=== PATIENT | male | born 1960 | race Caucasian/White ===

== ENCOUNTER 2022-08-18 21:39 | Emergency (ER) | payer BC ==
[~2022-08-18] VITALS: Ht 172.7 cm; Wt 86.2 kg
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
[2022-08-18 22:04] LABS: HEMATOCRIT 41.8 % (36.7-47.1); MEAN CORPUSCULAR HEMOGLOBIN 28.9 uug (23.8-33.4); MEAN CORPUSCULAR VOLUME 85.5 fL (73.0-96.2); PLATELET COUNT (AUTO) 340 K/uL (152-348)
[2022-08-18 22:39] LABS: ALANINE AMINOTRANSFERASE 29 U/L (16-63); ALKALINE PHOSPHATASE 92 U/L (50-136); ASPARTATE AMINOTRANSFERASE 12 U/L (15-37); BILIRUBIN,DIRECT 0.1 mg/dL (0.0-0.2); BILIRUBIN,TOTAL 0.4 mg/dL (0.2-1.0); CARBON DIOXIDE 25 mmol/L (21-32); CHLORIDE 103 mmol/L (98-107); CREATININE 1.8 mg/dL (0.6-1.3); GLUCOSE 132 mg/dL (74-106); POTASSIUM 3.4 mmol/L (3.5-5.1); TOTAL PROTEIN, SERUM 7.3 g/dL (6.4-8.2); UREA NITROGEN, BLOOD 21 mg/dL (7-18)
[2022-08-18] MEDS ORDERED: diphenhydrAMINE 50 MG/1 ML VIAL ONE (22:43)
[2022-08-18] MEDS ORDERED: HALOPERIDOL LACTATE 5 MG/1 ML VIAL ONE (22:43)
[2022-08-18 22:44] LABS: ACETAMINOPHEN < 2.0 ug/mL (10-30); ETHANOL < 3 MG/DL (0-0)
[2022-08-18] MEDS ORDERED: LORAZEPAM 2 MG/1 ML VIAL ONE (22:44)
[2022-08-18] MEDS ORDERED: LORAZEPAM 2 MG/1 ML VIAL IM ONE (22:45)
[2022-08-18] MEDS ORDERED: diphenhydrAMINE 50 MG/1 ML VIAL IM ONE (22:45)
[2022-08-18] MEDS ORDERED: HALOPERIDOL LACTATE 5 MG/1 ML VIAL IM ONE (22:45)
[2022-08-18] MEDS ORDERED: IV NS 1000 ML 1,000 ML IV ONE ×2 (23:30)
[2022-08-19] LABS: MAGNESIUM 2.4 mg/dL (1.8-2.4)
[2022-08-19] MEDS ORDERED: POTASSIUM CHLORIDE 200 ML ONE (00:28)
[2022-08-19] MEDS: POTASSIUM CHLORIDE 50 ML IV SCH ×4 (00:35→03:33)
--- NOTE | 2022-08-19 01:52 | NUR ---
Patient medically cleared. Called intake department and informed that patient is medically cleared, informed of patient insurance ([employer]), per intake, no beds available at [facility] at this time. No male bed available here at [facility]. Called PET team/Art and informed regarding patient and that patient is already on a 5150 hold. Stated to notify funeral workers in AM to look for placement and for this nurse to try to call [facility] intake as well as [facility] for bed availability.
--- NOTE | 2022-08-19 01:57 | NUR ---
Telephone call to [facility] intake, spoke to Paige, stated that they do not have any male bed at this time and to check again in AM.
--- NOTE | 2022-08-19 01:59 | NUR ---
Telephone call to [facility] intake, spoke to Amaya, stated that they do not have any male bed at this time and to check again after 8AM.
--- NOTE | 2022-08-19 02:01 | NUR ---
Telephone call to [facility], stated that they do not take patient on a 5150 hold.
[2022-08-19 02:19] LABS: *BILIRUBIN,URIN NEGATIVE (NEGATIVE); *BLOOD, URINE 1+ (NEGATIVE); *COLOR,URINE YELLOW (YELLOW); *KETONES,URINE NEGATIVE (NEGATIVE); *UROBILINOGEN,URINE 0.2 E.U./dl (NORMAL); LEUKOCYTE ESTERASE ,URINE 1+ (NEGATIVE); NITRITE, URINE NEGATIVE (NEGATIVE); PH,URINE 5.5 (5.0-8.0); UGLUCOSE NEGATIVE (NEGATIVE)
[2022-08-19 02:20] LABS: *CLARITY,URINE HAZY (CLEAR)
[2022-08-19 02:24] LABS: BACTERIA,URINE FEW /HPF (NONE SEEN); SQUAMOUS EPITHELIAL CELL,UR NONE SEEN /HPF (NONE SEEN)
[2022-08-19 02:36] LABS: *AMPHETAMINE, URINE NEGATIVE (NEGATIVE); *CANNABINOID, URINE NEGATIVE (NEGATIVE); *COCCAINE, URINE NEGATIVE (NEGATIVE); *PHENCYCLIDINE SCREEN,URINE NEGATIVE (NEGATIVE)
[2022-08-19] MEDS ORDERED: CEFTRIAXONE /D5W 50ML IVPB **ER PYXIS IV ONE (03:45)
[2022-08-19] MEDS ORDERED: CEFTRIAXONE 1 G in IV DEXTROSE 5% 50 ML IV ONE (03:45)
--- NOTE | 2022-08-19 03:50 | NUR ---
Noted patient IV pulled out. Placed new IV on left hand #20G.
[2022-08-19] MEDS ORDERED: QUET50TA PO (04:40)
[2022-08-19] MEDS ORDERED: MIRT-121 PO (04:40)
[2022-08-19] MEDS ORDERED: ATOR10TA PO (04:40)
--- NOTE | 2022-08-19 06:52 | NUR ---
SBAR report given to day shift KARO Baumann.
--- NOTE | 2022-08-19 07:14 | NUR ---
PT IS IN ROOM #2A. RESTING IN BED COMFORTABLY. NO S/S OF ACUTE DISTRESS. SITTER AT THE BEDSIDE. CONTINUE TO MONITOR THE PT.
--- NOTE | 2022-08-19 08:28 | NUR ---
SOPHIE contacted [facility] and faxed the patient's clinical information (fax: [phone]). SOPHIE also faxed the patient's clinical information to Aj Conde, [facility], [facility]. SOPHIE will continue to follow up.
[2022-08-19] MEDS ORDERED: LORAZEPAM 2 MG/1 ML VIAL ONE (09:37)
[2022-08-19] MEDS ORDERED: LORAZEPAM 2 MG/1 ML VIAL IM ONE (09:45)
--- NOTE | 2022-08-19 10:26 | NUR ---
PT IS RESTING IN BED COMFORTABLY. NO S/S OF ACUTE DISTRESS. SITTER AT THE BEDSIDE.
--- NOTE | 2022-08-19 11:08 | NUR ---
REPORT WAS GIVEN TO KARO DIAZ AT [facility].
--- NOTE | 2022-08-19 12:02 | NUR ---
PT WAS TRANSFERED TO [facility] ROOM#110B VIA [facility]. ACCEPTING MD IS DR BARNES. REPORT WAS GIVEN TO KARO TORREZ AND TO AMBULANCE EMT.
== END 2022-08-19 12:33 | disposition home or self-care (01) ==
LOC: ER 21:41
DX: S29.9XXA Unspecified injury of thorax, initial encounter (principal); F32.3 Major depressive disorder, single episode, severe with psychotic features; Z88.1 Allergy status to other antibiotic agents; Z88.5 Allergy status to narcotic agent; Z88.8 Allergy status to other drugs, medicaments and biological substances; Z20.822 Contact with and (suspected) exposure to COVID-19; X78.9XXA Intentional self-harm by unspecified sharp object, initial encounter; Y93.89 Activity, other specified; Y92.89 Other specified places as the place of occurrence of the external cause; Y99.8 Other external cause status
CPT/HCPCS: 80076; 80048; 82607; 83735; 85025; 87426; 36415; 99285; 96361 ×2; 96372 ×4; 80299; 80320; 80307; 81001; 96365; 87040; J1200; J1630; J2060 ×2; J0696; J3480; J7040 ×2; A4663; C1758; G0480